=== PATIENT | female | born 1960 | race Two or more races ===

== ENCOUNTER → 2024-09-17 | Outpatient (CLI) | payer BC, SELFPAY ==
[2024-09-17 15:35] LABS: Basophils % (Auto) 1 % (0-2.5); Eosinophils # (Auto) 0.1 Thou/mm3 (0.0-0.5); Eosinophils % (Auto) 2 % (0-10); Hematocrit 40.5 % (36.0-46.0); Hemoglobin 13.5 g/dL (12.0-16.0); Immature Granulocytes % (Auto) 0 % (0-0); Immature Granulocytes Auto 0.01 Thou/mm3 (0.00-0.00); Lymphocytes # (Auto) 1.9 Thou/mm3 (1.0-4.8); Lymphocytes % (Auto) 36 % (10-50); Mean Corpuscular HGB Conc 33.3 g/dl (31.0-37.0); Mean Corpuscular Hemoglobin 33.3 pg (25.0-35.0); Mean Corpuscular Volume 100 fL (80-100); Monocytes # (Auto) 0.6 Thou/mm3 (0.0-0.8); Monocytes % (Auto) 12 % (0-12); Neutrophils # (Auto) 2.6 Thou/mm3 (1.8-7.7); Neutrophils % (Auto) 49 % (37-80); Nucleated Red Blood Cell % 0 /100 WBC (0); RDW Standard Deviation 60.5 fL (36.4-46.3); Red Blood Count 4.05 Miln/mm3 (4.00-5.20); White Blood Count 5.2 Thou/mm3 (3.6-11.0)
[2024-09-17 15:54] LABS: Platelet Count 79 Thou/mm3 (140-440)
[2024-09-17 15:55] LABS: Slide Review Platelets confirmed
[2024-09-17 15:56] LABS: Alanine Aminotransferase 29 U/L (10-49); Albumin, Serum 2.9 gm/dL (3.4-4.8); Albumin/Globulin Ratio 0.8 (1.2-2.2); Alkaline Phosphatase 199 U/L (46-116); Anion Gap 3 (7-16); Aspartate Amino Transferase 51 U/L (0-34); BUN/Creatinine Ratio 16 Ratio (12-20); Bilirubin,Total 1.8 mg/dL (0.3-1.2); Blood Urea Nitrogen 13 mg/dL (9-23); Calcium 8.6 mg/dL (8.3-10.6); Calcium (Corrected) 9.5 mg/dL (8.5-10.1); Carbon Dioxide 28.6 mMol/L (20.0-31.0); Chloride 109 mMol/L (98-107); Creatinine (Component) 0.8 mg/dL (0.6-1.3); Globulin 3.8 gm/dL (2.3-3.5); Glucose 94 mg/dL (74-106); Osmolality,Calculated 281 (275-295); Potassium 4.6 mMol/L (3.4-5.1); Sodium 141 mMol/L (136-145); Total Protein 6.7 gm/dL (5.7-8.2); eGFR > 60 See Note
[2024-09-17 16:13] LABS: CA 15-3 9.9 U/mL (<32.4); Carcinoembryonic Antigen 2.8 ng/mL (0.0-5.0)
== END | disposition home or self-care (01) ==
LOC: SCTO 13:56
PROVIDERS: PCP Physician Assistant; Referring Provider Nurse Practitioner Family; Visit Provider Nurse Practitioner Family
DX: C50.311 Malignant neoplasm of lower-inner quadrant of right female breast (principal)
CPT/HCPCS: 36415; 80053; 82105; 82378; 85025; 86300

== ENCOUNTER → 2024-09-22 | Outpatient (CLI) | payer BC, SELFPAY ==
--- NOTE | 2024-09-22 10:09 | EKG_ITS ---
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
[2024-09-22 10:11] VITALS: BMI 33.7
[2024-09-22 10:58] LABS: Basophils % (Auto) 1 % (0-2.5); Eosinophils # (Auto) 0.1 Thou/mm3 (0.0-0.5); Eosinophils % (Auto) 3 % (0-10); Hematocrit 40.7 % (36.0-46.0); Hemoglobin 13.8 g/dL (12.0-16.0); Immature Granulocytes % (Auto) 0 % (0-0); Immature Granulocytes Auto 0.01 Thou/mm3 (0.00-0.00); Lymphocytes # (Auto) 1.4 Thou/mm3 (1.0-4.8); Lymphocytes % (Auto) 34 % (10-50); Mean Corpuscular HGB Conc 33.9 g/dl (31.0-37.0); Mean Corpuscular Hemoglobin 32.9 pg (25.0-35.0); Mean Corpuscular Volume 97 fL (80-100); Monocytes # (Auto) 0.4 Thou/mm3 (0.0-0.8); Monocytes % (Auto) 11 % (0-12); Neutrophils % (Auto) 51 % (37-80); Nucleated Red Blood Cell % 0 /100 WBC (0)
[2024-09-22 11:13] LABS: Platelet Count 74 Thou/mm3 (140-440)
[2024-09-22 11:16] LABS: Alanine Aminotransferase 26 U/L (10-49); Albumin, Serum 2.9 gm/dL (3.4-4.8); Albumin/Globulin Ratio 0.7 (1.2-2.2); Alkaline Phosphatase 174 U/L (46-116); Anion Gap 4 (7-16); Aspartate Amino Transferase 45 U/L (0-34); BUN/Creatinine Ratio 14 Ratio (12-20); Bilirubin,Total 2.2 mg/dL (0.3-1.2); Blood Urea Nitrogen 10 mg/dL (9-23); Calcium 8.4 mg/dL (8.3-10.6); Calcium (Corrected) 9.3 mg/dL (8.5-10.1); Carbon Dioxide 28.4 mMol/L (20.0-31.0); Chloride 107 mMol/L (98-107); Creatinine (Component) 0.7 mg/dL (0.6-1.3); Estimated Creatinine Clearance 86.8 mL/min (>60); Globulin 3.9 gm/dL (2.3-3.5); Glucose 142 mg/dL (74-106); Osmolality,Calculated 278 (275-295); Potassium 4.1 mMol/L (3.4-5.1); Sodium 139 mMol/L (136-145); Total Protein 6.8 gm/dL (5.7-8.2); eGFR > 60 See Note
[2024-09-22 11:39] LABS: HIV (1&2) Antibody Rapid Non-Reactive
[2024-09-22 12:04] LABS: Hepatitis A Antibody IgM Non Reactive (Non React); Hepatitis B Core Antibody IgM Non Reactive (Non React); Hepatitis B Surface Antigen Non Reactive (Non React); Hepatitis C Antibody Non Reactive (Non React)
[2024-09-22 16:45] LABS: Slide Review Platelets confirmed
== END | disposition home or self-care (01) ==
LOC: SLAB 09-24 07:35
PROVIDERS: PCP Physician Assistant; Referring Provider Student in an Organized Health Care Education/Training Program; Visit Provider Student in an Organized Health Care Education/Training Program
DX: Z01.812 Encounter for preprocedural laboratory examination (principal); N95.0 Postmenopausal bleeding
CPT/HCPCS: 36415; 80053; 80074; 85025; 86703; 86850; 86900; 86901; 93005

== ENCOUNTER 2024-09-24 13:27 | Outpatient (RCR) | payer BC, SELFPAY ==
--- NOTE | 2024-09-27 19:07 | CTCFLWUP_ITS ---
[address] [address] FOLLOW UP NOTE DATE OF VISIT: 09/24/2024 NAME: LUBA ANTON MR#: [id number] : 1960 AGE: 63 DIAGNOSIS: Stage I ER positive, FL positive HER-2/lee negative, grade 1 invasive ductal carcinoma of right breast (11/30/2014). Thrombocytopenia from cirrhosis of the liver and portacaval adenopathy, CT 05/10/2022. Vaginal bleed planned for hysterectomy REASON FOR TODAY?S VISIT: This is office follow-up visit. Patient was seen by her oracle obiee developer and t ransvaginal ultrasound was obtained. Transvaginal ultrasound of the pelvis showed abnormally thicken ed endometrial stripe, 08/13/2024. Pelvic ultrasound recommended 6-month follow-up continue transvagi nal pelvic ultrasound to document stability of thickened endometrial stripe, 08/13/2024. Patient was planned for hysterectomy but procedure was aborted secondary to lower platelet level. Patient is her e to get recommendations for surgery as well as to follow-up on the breast ultrasound. HISTORY OF PRESENT ILLNESS: PREVIOUS NOTE: Luba Anton is a 63-year-old Syriac-speaking [place] panic female with following history. 08/19/2014: Patient had a right breast mammogram which showed suspicious microcalcifications at 6 o'cl ock position in the right breast. 09/15/2014: Patient had stereotactic core biopsy of right breast mass which showed grade 1 0.3 cm inva sive ductal carcinoma. No lymphovascular invasion was identified. Tumor was ER positive, FL positive and HER-2/ lee negative. 11/30/2014: Patient had right breast partial mastectomy and sentinel lymph node biopsy. Surgical path ology specimen did not show any evidence of residual invasive malignancy in the right breast partial mastectomy spec imen. One sentinel lymph node was negative for metastatic disease. 02/14/2015: Patient received adjuvant radiation therapy to the right breast. 05/23/2015 patient was started on adjuvant letrozole. 11/29/2015: Patient had a right breast simple mastectomy which showed focal residual ductal carcinoma in situ without any evidence of invasive malignancy. 08/27/2017: Letrozole was changed to anastrozole due to muscle pains. 09/26/2017: Bone density test?10/07/2018: Patient had mammograms done.Bl-RADS category ll Benign ?ndi ngs Recommend I year follow-up mammogram. 09/16/2019: Doppler ultrasound study of the left lower extremity was negative for DVT. 10/09/2019: Bone scan did not show any evidence of metastatic disease to the bone. 10/07/2019: Unilateral left breast screening mammogram showed BI-RADS Category 2, benign findings. 11/06/2019: X-ray pelvis?Poorly defined radiolucency in the left femoral neck and greater trochanter This measures at least 23 mm in transverse dimension. Poorly defined radiolucency in the right femoral neck, 18 mm 01/30/2020: MRI of right and left hip with contrast is negative for any malignancy. 08/19/2020: Bone density test 05/01/2021: CT scan of the abdomen and pelvis without contrast? 05/10/2022: CT abdomen with and without contrast 07/17/2023: CT 01/31/2024: DEXA 02/19/2024: Mammogram screening 02/19/2024: CEA 2.7, CA 15-3 13.0 03/18/2024: CT abdomen and pelvis with and without contrast 03/25/2024: US left breast 03/25/2024: Diagnostic Mammogram 03/25/2024: CEA is 2.9, CA 15-3 is 13.6 04/08/2024: Ultrasound left breast 04/10/2024: Ultrasound pelvic complete 04/10/2024: Transvaginal ultrasound of the pelvis 05/15/2024: CA125 is 18.0 05/19/2024: CEA is 2.5 05/21/2024: Pelvis MRI with and without contrast 08/13/2024: Transvaginal ultrasound of the pelvis showed abnormally thickened endometrial stripe. 08/13/2024: Pelvic ultrasound recommended 6-month follow-up continue transvaginal pelvic ultrasound to document stability of thickened endometrial stripe MEDICATIONS: Calcium 600 + D(3) [calcium carbonate-vitamin D3] Medications last reconciled 08/19/2024 ALLERGIES: No Known Drug Allergies REVIEW OF SYSTEMS Neurological: No headache, seizures or blurring of vision. Gastrointestinal: No nausea, vomiting, diarrhea or constipation. Cardiovascular: No palpitations or angina pains. Respiratory: No cough, chest pain or shortness of breath. VITAL SIGNS: Date Time PHYSICAL EXAMINATION: Conjunctivae is white Oral cavity: No Lesions. Neck is supple. No adenopathy. Chest is clear to auscultation. No wheezes or rales audible. CVS: Rhythm regular, no murmurs. Abdomen is soft. No hepatosplenomegaly. Extremities: No pedal edema, no cyanosis. LABORATORY DATA: Date 09/17/2024 09/22/2024 Time 2:08 PM 10:33 AM CBC ?WHITE BLOOD COUNT (Thou/mm3) [C] 5.2 [C] 4.0 ??RED BLOOD COUNT (Miln/mm3) [C] 4.05 [C] 4.20 ??HEMOGLOBIN (gm/dl) [C] 13.5 [C] 13.8 ??HEMATOCRIT (%) [C] 40.5 [C] 40.7 ??MCV (MEAN CORPUSCULAR VOL) (fl) [C] 100 [C] 97 ??MCH (MEAN CORPUSCULAR HGB) (pg) [C] 33.3 [C] 32.9 ??MCHC (MEAN CORPSCULR HGB CONC) (gm/dl) [C] 33.3 [C] 33.9 ??RDW (RBC DISTRIBUTION WDTH) SD (fl) [C] 60.5 H [C] 60.0 H ??PLATELET COUNT (Thou/mm3) [C] 79 L [C] 74 L ??NEUTROPHILS %, AUTO (%) [C] 49 [C] 51 ??LYMPH %, AUTO (%) [C] 36 [C] 34 ??MONO %, AUTO (%) [C] 12 [C] 11 ??EOS %, AUTO (%) [C] 2 [C] 3 ??BASO %, AUTO (%) [C] 1 [C] 1 ??NUCLEATED RBC % (/100 WBC) [C] 0 [C] 0 ??NEUTROPHILS, AUTO (Thou/mm3) [C] 2.6 [C] 2.0 ??LYMPH, AUTO (Thou/mm3) [C] 1.9 [C] 1.4 ??MONO, AUTO (Thou/mm3) [C] 0.6 [C] 0.4 ??EOS, AUTO (Thou/mm3) [C] 0.1 [C] 0.1 ??BASO, AUTO (Thou/mm3) [C] 0.0 [C] 0.0 ??NUCLEATED RBC # (Thou/mm3) [C] 0.00 [C] 0.00 ??IMMATURE GRANULOCYTES % AUTO (%) [C] 0 [C] 0 ??IMMATURE GRANULOCYTES, AUTO (Thou/mm3) [C] 0.01 H [C] 0.01 H Chemistry ?GLUCOSE,RANDOM (mg/dL) 94 142 H ??BLOOD UREA NITROGEN (mg/dL) 13 10 ??CREATININE (mg/dL) 0.80 0.70 ??SODIUM (mmol/L) 141 139 ??POTASSIUM (mmol/L) 4.6 4.1 ??CHLORIDE (mmol/L) 109 H 107 ??CO2 (CARBON DIOXIDE) (mmol/L) 28.6 28.4 ??ANION GAP (mmol/L) 3 L 4 L ??OSMOLALITY, CALC 281 278 ??BUN/CREATININE RATIO (Ratio) 16 14 ??CrCl (CandG) (ml/min) 99.20 113.37 ??AST/SGOT (Unit/L) 51 H 45 H ??ALT/SGPT (Unit/L) 29 26 ??ALKALINE PHOSPHATASE (Unit/L) 199 H 174 H ??BILIRUBIN, TOTAL (mg/dL) 1.8 H 2.2 H ??PROTEIN TOTAL (gm/dl) 6.7 6.8 ??ALBUMIN, SERUM (gm/dl) 2.9 L 2.9 L ??GLOBULIN (gm/dl) 3.8 H 3.9 H ??ALBUMIN/GLOBULIN RATIO 0.8 L 0.7 L ??CALCIUM, SERUM (mg/dL) 8.6 8.4 ??CALCIUM SERUM (CORRECTED) (mg/dL) 9.5 9.3 Tumor Markers ?CEA (O*) (ng/ml) 2.8 ?Initials MALIKA SANDHU ??Approved By [facility] ? Other Labs ?CrCl (J) (ml/min) 72.5 82.8 ??SLIDE REVIEW (Thou/mm3) Platelets confirmed Platelets confirmed ??AFP NON- (O*) (ng/ml) 3.20 ? ??HEPATITIS B SURFACE AG ? Non Reactive ??CA 15-3 (Unit/mL) 9.9 ? ??Hepatitis B Core Antibody IgM ? Non Reactive ??Estimated Creatinine Clearance (ml/min) ? 86.8 ??Hepatitis C Antibody ? Non Reactive ??Hepatitis A Antibody IgM ? Non Reactive ??HIV (1 2) Antibody Rapid ? Non-Reactive ??eGFR (See Note) > 60 > 60 ASSESSMENT AND PLAN: #1. Stage I ER positive, FL positive HER-2/lee negative, grade 1 invasive ductal carcinoma of right b reast (11/30/2014). Right breast simple mastectomy, 11/29/2015. Completed anastrozole treatment. left breast ultrasound follow up for 09/2024 is normal . Clinical no evidence of recurrence Regular mammogram #2 thrombocytopenia from underlying liver cirrhosis and endometrial thickening Patient already follows with outside tinning equipment tender for her cirrhosis and portal caval adenopathy Patient's last EGD was normal Last colonoscopy in 2019 was normal Patient need every 6 months MRI of the liver to evaluate for early hcc Patient will continue to follow with her tinning equipment tender at [facility] Patient was planned for hysterectomy Advised--patient can be transfused 10 units of platelets or 1 platelet pheresis during procedure of h ysterectomy Patient is low risk for bleed if her platelets are above 50 but to be on the safer side we can keep t he platelets above 100 Patient should be able to complete hysterectomy with the platelet pheresis #4. Risk for osteoporosis. DEXA, osteopenia, lumbar mineralization increased 4.6%, 01/31/2024. Continue calcium twice daily. #5. Cholelithiasis Epigastric pain resolved, declined surgical intervention Follow-up with the PCP. RTC in 6 months cc: Stu Willett, Referring: Jonathan Willett This document was completed utilizing speech recognition software. Grammatical errors, random word in sertions, pronoun errors, and incomplete sentences are an occasional consequence of this system due t o software limitations, ambient noise, and hardware issues. Any formal questions or concerns about th e content, text or information contained within the body of this dictation should be directly address ed to the provider for clarification. Patient: LUBA ANTON : 1960 MR#: [id number] FOLLOW UP NOTE Page 11 of 11
== END 2024-10-10 23:59 | disposition home or self-care (01) ==
LOC: SCTC 13:27
PROVIDERS: PCP Physician Assistant; Referring Provider Physician Assistant; Visit Provider Internal Medicine Hematology & Oncology
DX: R93.89 Abnormal findings on diagnostic imaging of other specified body structures (principal); Z85.3 Personal history of malignant neoplasm of breast; Z90.11 Acquired absence of right breast and nipple; D69.6 Thrombocytopenia, unspecified; M85.88 Other specified disorders of bone density and structure, other site
CPT/HCPCS: 99213; G0463

== ENCOUNTER → 2024-11-12 | Outpatient (CLI) | payer BC, SELFPAY ==
[2024-11-12 14:17] LABS: Basophils % (Auto) 0 % (0-2.5); Eosinophils # (Auto) 0.1 Thou/mm3 (0.0-0.5); Eosinophils % (Auto) 3 % (0-10); Hematocrit 39.2 % (36.0-46.0); Hemoglobin 13.1 g/dL (12.0-16.0); Immature Granulocytes % (Auto) 0 % (0-0); Immature Granulocytes Auto 0.01 Thou/mm3 (0.00-0.00); Lymphocytes # (Auto) 1.3 Thou/mm3 (1.0-4.8); Lymphocytes % (Auto) 31 % (10-50); Mean Corpuscular HGB Conc 33.4 g/dl (31.0-37.0); Mean Corpuscular Hemoglobin 33.2 pg (25.0-35.0); Mean Corpuscular Volume 99 fL (80-100); Monocytes # (Auto) 0.4 Thou/mm3 (0.0-0.8); Monocytes % (Auto) 10 % (0-12); Neutrophils # (Auto) 2.3 Thou/mm3 (1.8-7.7); Neutrophils % (Auto) 56 % (37-80); Nucleated Red Blood Cell % 0 /100 WBC (0); Platelet Count 83 Thou/mm3 (140-440); RDW Standard Deviation 60.8 fL (36.4-46.3); Red Blood Count 3.95 Miln/mm3 (4.00-5.20)
[2024-11-12 14:23] LABS: INR 1.3 (0.9-1.3); Partial Thromboplastin Time 33.9 Seconds (22.0-36.0); Prothrombin Time 14.1 Seconds (9.0-12.2)
[2024-11-12 14:24] LABS: Alanine Aminotransferase 33 U/L (10-49); Albumin/Globulin Ratio 0.8 (1.2-2.2); Alkaline Phosphatase 203 U/L (46-116); Anion Gap 7 (7-16); Aspartate Amino Transferase 51 U/L (0-34); BUN/Creatinine Ratio 17 Ratio (12-20); Bilirubin,Total 1.6 mg/dL (0.3-1.2); Blood Urea Nitrogen 10 mg/dL (9-23); Calcium 8.4 mg/dL (8.3-10.6); Calcium (Corrected) 9.2 mg/dL (8.5-10.1); Carbon Dioxide 28.5 mMol/L (20.0-31.0); Chloride 108 mMol/L (98-107); Creatinine (Component) 0.6 mg/dL (0.6-1.3); Globulin 3.9 gm/dL (2.3-3.5); Glucose 144 mg/dL (74-106); LDH (Lactate Dehydrogenase) 263 U/L (120-246); Osmolality,Calculated 286 (275-295); Sodium 143 mMol/L (136-145); Total Protein 6.9 gm/dL (5.7-8.2); eGFR > 60 See Note
[2024-11-19 06:25] LABS: Haptoglobin* 10 mg/dL (43-212)
== END | disposition home or self-care (01) ==
LOC: SCTO 12:51
PROVIDERS: PCP Physician Assistant; Referring Provider Internal Medicine Hematology & Oncology; Visit Provider Internal Medicine Hematology & Oncology
DX: C50.311 Malignant neoplasm of lower-inner quadrant of right female breast (principal)
CPT/HCPCS: 36415; 80053; 83010; 83615; 85025; 85610; 85730; 86880

== ENCOUNTER 2024-11-17 13:27 | Outpatient (RCR) | payer BC, SELFPAY | END 2024-12-11 23:59 | disposition home or self-care (01) | LOC: SCTC 13:27 | PROVIDERS: PCP Physician Assistant; Referring Provider Physician Assistant; Visit Provider Nurse Practitioner Family | DX: Z08 Encounter for follow-up examination after completed treatment for malignant neoplasm (principal); Z85.3 Personal history of malignant neoplasm of breast; Z90.11 Acquired absence of right breast and nipple; Z92.29 Personal history of other drug therapy; D69.6 Thrombocytopenia, unspecified; M85.89 Other specified disorders of bone density and structure, multiple sites | CPT/HCPCS: 99212; G0463 ==

== ENCOUNTER → 2025-02-11 | Outpatient (CLI) | payer BC, SELFPAY ==
[2025-02-11 13:14] LABS: Basophils % (Auto) 1 % (0-2.5); Eosinophils # (Auto) 0.1 Thou/mm3 (0.0-0.5); Eosinophils % (Auto) 2 % (0-10); Hematocrit 35.7 % (36.0-46.0); Hemoglobin 12.1 g/dL (12.0-16.0); Immature Granulocytes % (Auto) 0 % (0-0); Immature Granulocytes Auto 0.01 Thou/mm3 (0.00-0.00); Lymphocytes # (Auto) 1.4 Thou/mm3 (1.0-4.8); Lymphocytes % (Auto) 29 % (10-50); Mean Corpuscular HGB Conc 33.9 g/dl (31.0-37.0); Mean Corpuscular Hemoglobin 32.1 pg (25.0-35.0); Mean Corpuscular Volume 95 fL (80-100); Monocytes # (Auto) 0.6 Thou/mm3 (0.0-0.8); Monocytes % (Auto) 12 % (0-12); Neutrophils # (Auto) 2.7 Thou/mm3 (1.8-7.7); Neutrophils % (Auto) 57 % (37-80); Nucleated Red Blood Cell % 0 /100 WBC (0); Platelet Count 87 Thou/mm3 (140-440); RDW Standard Deviation 58.8 fL (36.4-46.3); Red Blood Count 3.77 Miln/mm3 (4.00-5.20); White Blood Count 4.7 Thou/mm3 (3.6-11.0)
[2025-02-11 13:26] LABS: Alanine Aminotransferase 28 U/L (10-49); Albumin, Serum 2.5 gm/dL (3.4-4.8); Albumin/Globulin Ratio 0.6 (1.2-2.2); Alkaline Phosphatase 201 U/L (46-116); Anion Gap 6 (7-16); Aspartate Amino Transferase 47 U/L (0-34); BUN/Creatinine Ratio 20 Ratio (12-20); Bilirubin,Total 1.7 mg/dL (0.3-1.2); Blood Urea Nitrogen 12 mg/dL (9-23); Calcium 7.9 mg/dL (8.3-10.6); Calcium (Corrected) 9.1 mg/dL (8.5-10.1); Carbon Dioxide 26.8 mMol/L (20.0-31.0); Chloride 109 mMol/L (98-107); Creatinine (Component) 0.6 mg/dL (0.6-1.3); Globulin 3.9 gm/dL (2.3-3.5); Glucose 91 mg/dL (74-106); Osmolality,Calculated 282 (275-295); Potassium 4.1 mMol/L (3.4-5.1); Sodium 142 mMol/L (136-145); Total Protein 6.4 gm/dL (5.7-8.2); eGFR > 60 See Note
[2025-02-11 13:44] LABS: CA 15-3 15.6 U/mL (<32.4); Carcinoembryonic Antigen 2.8 ng/mL (0.0-5.0)
== END | disposition home or self-care (01) ==
LOC: SCTO 12:46
PROVIDERS: PCP Physician Assistant; Referring Provider Nurse Practitioner Family; Visit Provider Nurse Practitioner Family
DX: C50.311 Malignant neoplasm of lower-inner quadrant of right female breast (principal)
CPT/HCPCS: 36415; 80053; 82105; 82378; 85025; 86300

== ENCOUNTER 2025-02-15 15:39 | Outpatient (RCR) | payer BC, SELFPAY | END 2025-03-10 23:59 | disposition home or self-care (01) | LOC: SCTC 15:39 | PROVIDERS: PCP Physician Assistant; Referring Provider Physician Assistant; Visit Provider Nurse Practitioner Family | DX: Z08 Encounter for follow-up examination after completed treatment for malignant neoplasm (principal); Z85.3 Personal history of malignant neoplasm of breast; Z90.11 Acquired absence of right breast and nipple; M85.88 Other specified disorders of bone density and structure, other site; K74.60 Unspecified cirrhosis of liver; D69.6 Thrombocytopenia, unspecified; R93.89 Abnormal findings on diagnostic imaging of other specified body structures | CPT/HCPCS: 99212; G0463 ==

== ENCOUNTER → 2025-03-17 | Outpatient (CLI) | payer BC, SELFPAY ==
--- NOTE | 2025-03-17 13:45 | XR_ITS ---
Examination: Screening digital mammography, unilateral left Computer aided detection 3-D breast Tomosynthesis, unilateral Date and time of exam: March 17, 2025 1425 hours Compared to mammograms dating to October 10, 2020 Indication: Screening, personal history right breast cancer Technique: Nonmagnified MLO, CC views of the left breast to been obtained, reconstructed from 3-D Tomosynthesis images. R2 computer aided detection program utilized for evaluation of suspicious masses and/or abnormal calcifications. 3-D Tomosynthesis images obtained. Findings: Scattered areas of fibroglandular density Focal asymmetry stable retroareolar region left breast No interval suspicious masses Impression: BI-RADS category II Benign findings Recommend 1 year follow-up mammogram.
[2025-03-17 15:24] LABS: Basophils % (Auto) 1 % (0-2.5); Eosinophils # (Auto) 0.3 Thou/mm3 (0.0-0.5); Eosinophils % (Auto) 6 % (0-10); Hematocrit 36.9 % (36.0-46.0); Hemoglobin 12.4 g/dL (12.0-16.0); Immature Granulocytes % (Auto) 0 % (0-0); Immature Granulocytes Auto 0.01 Thou/mm3 (0.00-0.00); Lymphocytes # (Auto) 1.7 Thou/mm3 (1.0-4.8); Lymphocytes % (Auto) 35 % (10-50); Mean Corpuscular HGB Conc 33.6 g/dl (31.0-37.0); Mean Corpuscular Hemoglobin 31.7 pg (25.0-35.0); Mean Corpuscular Volume 94 fL (80-100); Monocytes # (Auto) 0.6 Thou/mm3 (0.0-0.8); Monocytes % (Auto) 13 % (0-12); Neutrophils # (Auto) 2.2 Thou/mm3 (1.8-7.7); Neutrophils % (Auto) 46 % (37-80); Nucleated Red Blood Cell % 0 /100 WBC (0); Platelet Count 98 Thou/mm3 (140-440); RDW Standard Deviation 55.3 fL (36.4-46.3); Red Blood Count 3.91 Miln/mm3 (4.00-5.20); White Blood Count 4.7 Thou/mm3 (3.6-11.0)
[2025-03-17 15:32] LABS: Alanine Aminotransferase 24 U/L (10-49); Albumin, Serum 2.6 gm/dL (3.4-4.8); Albumin/Globulin Ratio 0.6 (1.2-2.2); Alkaline Phosphatase 237 U/L (46-116); Anion Gap 5 (7-16); Aspartate Amino Transferase 43 U/L (0-34); BUN/Creatinine Ratio 16 Ratio (12-20); Bilirubin,Total 1.6 mg/dL (0.3-1.2); Blood Urea Nitrogen 11 mg/dL (9-23); Calcium 7.9 mg/dL (8.3-10.6); Carbon Dioxide 27.1 mMol/L (20.0-31.0); Chloride 111 mMol/L (98-107); Creatinine (Component) 0.7 mg/dL (0.6-1.3); Globulin 4.1 gm/dL (2.3-3.5); Glucose 109 mg/dL (74-106); Osmolality,Calculated 285 (275-295); Potassium 4.4 mMol/L (3.4-5.1); Sodium 143 mMol/L (136-145); Total Protein 6.7 gm/dL (5.7-8.2); eGFR > 60 See Note
[2025-03-17 16:28] LABS: Hepatitis A Antibody IgM Non Reactive (Non React); Hepatitis B Core Antibody IgM Non Reactive (Non React); Hepatitis B Surface Antigen Non Reactive (Non React); Hepatitis C Antibody Non Reactive (Non React)
== END | disposition home or self-care (01) ==
LOC: CDIM 14:23 → COPL 14:30 → SCTO 14:31
PROVIDERS: PCP Nurse Practitioner Family; Referring Provider Nurse Practitioner Family; Visit Provider Radiology Diagnostic Radiology
DX: C50.311 Malignant neoplasm of lower-inner quadrant of right female breast (principal); R92.8 Other abnormal and inconclusive findings on diagnostic imaging of breast; R92.322 Mammographic fibroglandular density, left breast
CPT/HCPCS: 36415; 77063; 77067; 80053; 80074; 85025

== ENCOUNTER → 2025-03-27 | Outpatient (CLI) | payer BC, SELFPAY ==
--- NOTE | 2025-03-27 10:00 | XR_ITS ---
Examination: MRI abdomen with intravenous contrast. MRI abdomen without intravenous contrast. Date and time of exam: March 27, 2011 2025, 0949 hrs. Indications: Diagnosis malignant neoplasm lower inner quadrant right female breast, elevated LFTs on laboratory examination one week ago Technique: Multiple axial, sagittal and coronal sections of the abdomen obtained. Transverse images, TR 6020, TE 107. T1 weighted transverse images, TR 582, TE 9.5. T2-weighted sagittal images, TR 4000, TE 105. T2-weighted sagittal images, TR 4000, TE 5. Coronal images, TR 4210, TE 107. Axial and coronal images are obtained post 19 cc intravenous injection, gadolinium. Findings: Liver is irregular in contour, no focal liver lesions There is edema around the gallbladder with possible gallstones Common hepatic duct common bile duct not enlarged Trace free fluid in the abdomen No splenomegaly Aorta normal size No hydronephrosis Impression: Suspect primary hepatocellular disease, no focal liver lesions Recommend hepatobiliary sonography follow-up to exclude early cholecystitis
== END | disposition home or self-care (01) ==
LOC: SMRI 09:08
PROVIDERS: PCP Physician Assistant; Referring Provider Nurse Practitioner Family; Visit Provider Nurse Practitioner Family
DX: C50.311 Malignant neoplasm of lower-inner quadrant of right female breast (principal)
CPT/HCPCS: 74183; A9579

== ENCOUNTER 2025-03-31 15:13 | Outpatient (RCR) | payer BC, SELFPAY | END 2025-04-10 23:59 | disposition home or self-care (01) | LOC: SCTC 15:13 | PROVIDERS: PCP Physician Assistant; Referring Provider Nurse Practitioner Family; Visit Provider Nurse Practitioner Family | DX: Z08 Encounter for follow-up examination after completed treatment for malignant neoplasm (principal); Z85.3 Personal history of malignant neoplasm of breast; Z90.11 Acquired absence of right breast and nipple; K74.60 Unspecified cirrhosis of liver; K76.0 Fatty (change of) liver, not elsewhere classified; M85.89 Other specified disorders of bone density and structure, multiple sites | CPT/HCPCS: 99212; G0463 ==

== ENCOUNTER → 2025-04-27 | Outpatient (CLI) | payer BC, SELFPAY ==
[2025-04-27 12:23] LABS: Basophils % (Auto) 1 % (0-2.5); Eosinophils # (Auto) 0.1 Thou/mm3 (0.0-0.5); Eosinophils % (Auto) 4 % (0-10); Hematocrit 36.3 % (36.0-46.0); Hemoglobin 12.2 g/dL (12.0-16.0); Immature Granulocytes % (Auto) 0 % (0-0); Lymphocytes # (Auto) 1.4 Thou/mm3 (1.0-4.8); Lymphocytes % (Auto) 37 % (10-50); Mean Corpuscular HGB Conc 33.6 g/dl (31.0-37.0); Mean Corpuscular Hemoglobin 31.1 pg (25.0-35.0); Mean Corpuscular Volume 93 fL (80-100); Monocytes # (Auto) 0.5 Thou/mm3 (0.0-0.8); Monocytes % (Auto) 14 % (0-12); Neutrophils # (Auto) 1.7 Thou/mm3 (1.8-7.7); Neutrophils % (Auto) 45 % (37-80); Nucleated Red Blood Cell % 0 /100 WBC (0); Platelet Count 86 Thou/mm3 (140-440); Red Blood Count 3.92 Miln/mm3 (4.00-5.20); White Blood Count 3.8 Thou/mm3 (3.6-11.0)
[2025-04-27 12:39] LABS: Alanine Aminotransferase 26 U/L (10-49); Albumin, Serum 2.6 gm/dL (3.4-4.8); Albumin/Globulin Ratio 0.8 (1.2-2.2); Alkaline Phosphatase 140 U/L (46-116); Anion Gap 7 (7-16); Aspartate Amino Transferase 44 U/L (0-34); BUN/Creatinine Ratio 13 Ratio (12-20); Bilirubin,Total 1.7 mg/dL (0.3-1.2); Blood Urea Nitrogen 9 mg/dL (9-23); Calcium 8.3 mg/dL (8.3-10.6); Calcium (Corrected) 9.4 mg/dL (8.5-10.1); Carbon Dioxide 27.7 mMol/L (20.0-31.0); Chloride 107 mMol/L (98-107); Creatinine (Component) 0.7 mg/dL (0.6-1.3); Globulin 3.3 gm/dL (2.3-3.5); Glucose 127 mg/dL (74-106); Osmolality,Calculated 283 (275-295); Potassium 4.3 mMol/L (3.4-5.1); Sodium 142 mMol/L (136-145); Total Protein 5.9 gm/dL (5.7-8.2); eGFR > 60 See Note
== END | disposition home or self-care (01) ==
LOC: SCTO 10:31
PROVIDERS: PCP Family Medicine; Referring Provider Student in an Organized Health Care Education/Training Program; Visit Provider Nurse Practitioner Family
DX: C50.311 Malignant neoplasm of lower-inner quadrant of right female breast (principal)
CPT/HCPCS: 36415; 80053; 82105; 85025

== ENCOUNTER → 2025-04-30 | Outpatient (CLI) | payer BC, SELFPAY ==
--- NOTE | 2025-04-30 11:30 | XR_ITS ---
Examination: Abdomen sonogram, Limited Date and time of exam: April 30, 2025 11:09 AM INDICATIONS: Diagnosis malignant neoplasm right breast, elevated liver function tests on laboratory examination this week Technique: Real-time brown scale transabdominal sonographic images of the upper abdomen obtained. Findings: Normal gallbladder Normal common bile duct 0.3 cm Pancreas obscured by bowel gas Liver 11.1 cm lobular contour fatty infiltration no focal liver lesions Normal hepatopedal portal venous flow Patent IVC IMPRESSION: Normal gallbladder Fatty liver, suspect primary hepatocellular disease, no focal liver lesions No intra or extrahepatic biliary tract dilatation
== END | disposition home or self-care (01) ==
LOC: CDIM 10:54
PROVIDERS: PCP Physician Assistant; Referring Provider Nurse Practitioner Family; Visit Provider Nurse Practitioner Family
DX: K76.0 Fatty (change of) liver, not elsewhere classified (principal); C50.311 Malignant neoplasm of lower-inner quadrant of right female breast
CPT/HCPCS: 76705

== ENCOUNTER 2025-06-23 15:03 | Outpatient (RCR) | payer BC, SELFPAY | END 2025-07-11 23:59 | disposition home or self-care (01) | LOC: SCTC 15:03 | PROVIDERS: PCP Physician Assistant; Referring Provider Physician Assistant; Visit Provider Internal Medicine Hematology & Oncology | DX: Z08 Encounter for follow-up examination after completed treatment for malignant neoplasm (principal); Z85.3 Personal history of malignant neoplasm of breast; Z90.11 Acquired absence of right breast and nipple; K74.60 Unspecified cirrhosis of liver; K76.0 Fatty (change of) liver, not elsewhere classified; M85.88 Other specified disorders of bone density and structure, other site; R73.9 Hyperglycemia, unspecified | CPT/HCPCS: 99212; G0463 ==

== ENCOUNTER → 2025-08-13 | Outpatient (CLI) | payer BC, SELFPAY ==
[2025-08-13 11:34] LABS: Basophils # (Auto) 0.0 Thou/mm3 (0.0-0.2); Basophils % (Auto) 1 % (0-2.5); Eosinophils # (Auto) 0.2 Thou/mm3 (0.0-0.5); Eosinophils % (Auto) 4 % (0-10); Hematocrit 38.2 % (36.0-46.0); Hemoglobin 12.8 g/dL (12.0-16.0); Immature Granulocytes Auto 0.01 Thou/mm3 (0.00-0.00); Lymphocytes # (Auto) 1.5 Thou/mm3 (1.0-4.8); Lymphocytes % (Auto) 35 % (10-50); Mean Corpuscular HGB Conc 33.5 g/dl (31.0-37.0); Mean Corpuscular Hemoglobin 32.2 pg (25.0-35.0); Mean Corpuscular Volume 96 fL (80-100); Monocytes # (Auto) 0.6 Thou/mm3 (0.0-0.8); Monocytes % (Auto) 15 % (0-12); Neutrophils # (Auto) 2.1 Thou/mm3 (1.8-7.7); Neutrophils % (Auto) 46 % (37-80); Nucleated Red Blood Cell # 0.00 Thou/mm3 (0.00-0.00); Nucleated Red Blood Cell % 0 /100 WBC (0); RDW Standard Deviation 64.1 fL (36.4-46.3); Red Blood Count 3.98 Miln/mm3 (4.00-5.20); White Blood Count 4.4 Thou/mm3 (3.6-11.0)
[2025-08-13 11:46] LABS: Platelet Count 77 Thou/mm3 (140-440)
[2025-08-13 11:52] LABS: Alanine Aminotransferase 23 U/L (10-49); Albumin, Serum 2.6 gm/dL (3.4-4.8); Albumin/Globulin Ratio 0.8 (1.2-2.2); Alkaline Phosphatase 178 U/L (46-116); Anion Gap 6 (7-16); Aspartate Amino Transferase 44 U/L (0-34); BUN/Creatinine Ratio 14 Ratio (12-20); Bilirubin,Total 1.8 mg/dL (0.3-1.2); Blood Urea Nitrogen 11 mg/dL (9-23); Calcium 8.1 mg/dL (8.3-10.6); Calcium (Corrected) 9.2 mg/dL (8.5-10.1); Carbon Dioxide 28.8 mMol/L (20.0-31.0); Chloride 109 mMol/L (98-107); Creatinine (Component) 0.8 mg/dL (0.6-1.3); Globulin 3.3 gm/dL (2.3-3.5); Glucose 110 mg/dL (74-106); Osmolality,Calculated 287 (275-295); Potassium 4.4 mMol/L (3.4-5.1); Sodium 144 mMol/L (136-145); Total Protein 5.9 gm/dL (5.7-8.2); eGFR > 60 See Note
[2025-08-13 16:00] LABS: Slide Review Platelets confirmed
== END | disposition home or self-care (01) ==
LOC: SCTO 10:34
PROVIDERS: PCP Physician Assistant; Referring Provider Nurse Practitioner Family; Visit Provider Nurse Practitioner Family
DX: C50.311 Malignant neoplasm of lower-inner quadrant of right female breast (principal)
CPT/HCPCS: 36415; 80053; 85025

== ENCOUNTER 2025-08-23 10:24 | Outpatient (RCR) | payer BC, SELFPAY | END 2025-09-10 23:59 | disposition home or self-care (01) | LOC: SCTC 10:24 | PROVIDERS: PCP Physician Assistant; Referring Provider Physician Assistant; Visit Provider Nurse Practitioner Family | DX: Z08 Encounter for follow-up examination after completed treatment for malignant neoplasm (principal); Z85.3 Personal history of malignant neoplasm of breast; Z90.11 Acquired absence of right breast and nipple; K74.60 Unspecified cirrhosis of liver; D69.6 Thrombocytopenia, unspecified; K76.0 Fatty (change of) liver, not elsewhere classified; Z78.0 Asymptomatic menopausal state; M85.88 Other specified disorders of bone density and structure, other site | CPT/HCPCS: 99212; G0463 ==

== ENCOUNTER → 2025-09-14 | Outpatient (CLI) | payer BC, SELFPAY ==
--- NOTE | 2025-09-14 11:56 | XR_ITS ---
Examination: Abdomen sonogram, complete Date and time of exam: September 14, 2025, 1209 hours INDICATIONS: Diagnosis cirrhosis. Technique: Multiple real-time grayscale transabdominal sonographic images of the abdomen have been obtained. Findings: Gallbladder sludge Gallbladder wall is thickened 0.6 cm with edema Common bile duct 0.4 cm Pancreatic head 3.1 cm Distal aorta visualized 1.3 cm Liver 10.1 cm lobular contour no focal liver lesions Normal hepatopetal portal venous flow Patent IVC Right kidney 10.1 cm renal cortex 1.5 cm Left kidney 10.7 cm renal cortex 1.5 cm Moderate renal scarring Spleen 11.7 cm IMPRESSION: Gallbladder sludge Gallbladder wall is thickened 0.6 cm with edema suspicious for cholecystitis, consider HIDA scan or MRCP follow-up Cirrhosis no focal liver lesions
[2025-09-14 13:58] LABS: Basophils # (Auto) 0.0 Thou/mm3 (0.0-0.2); Basophils % (Auto) 0 % (0-2.5); Eosinophils # (Auto) 0.2 Thou/mm3 (0.0-0.5); Eosinophils % (Auto) 4 % (0-10); Hematocrit 40.5 % (36.0-46.0); Hemoglobin 13.5 g/dL (12.0-16.0); Immature Granulocytes Auto 0.02 Thou/mm3 (0.00-0.00); Lymphocytes # (Auto) 1.6 Thou/mm3 (1.0-4.8); Lymphocytes % (Auto) 30 % (10-50); Mean Corpuscular HGB Conc 33.3 g/dl (31.0-37.0); Mean Corpuscular Hemoglobin 32.0 pg (25.0-35.0); Mean Corpuscular Volume 96 fL (80-100); Monocytes # (Auto) 0.8 Thou/mm3 (0.0-0.8); Monocytes % (Auto) 14 % (0-12); Neutrophils # (Auto) 2.8 Thou/mm3 (1.8-7.7); Neutrophils % (Auto) 51 % (37-80); Nucleated Red Blood Cell # 0.00 Thou/mm3 (0.00-0.00); Nucleated Red Blood Cell % 0 /100 WBC (0); RDW Standard Deviation 61.3 fL (36.4-46.3); Red Blood Count 4.22 Miln/mm3 (4.00-5.20); White Blood Count 5.4 Thou/mm3 (3.6-11.0)
[2025-09-14 14:13] LABS: Alanine Aminotransferase 36 U/L (10-49); Albumin, Serum 3.0 gm/dL (3.4-4.8); Albumin/Globulin Ratio 0.9 (1.2-2.2); Alkaline Phosphatase 140 U/L (46-116); Anion Gap 7 (7-16); Aspartate Amino Transferase 44 U/L (0-34); BUN/Creatinine Ratio 14 Ratio (12-20); Bilirubin,Direct 0.8 mg/dL (0.0-0.3); Bilirubin,Total 1.7 mg/dL (0.3-1.2); Blood Urea Nitrogen 11 mg/dL (9-23); Calcium 8.5 mg/dL (8.3-10.6); Calcium (Corrected) 9.3 mg/dL (8.5-10.1); Carbon Dioxide 27.0 mMol/L (20.0-31.0); Chloride 111 mMol/L (98-107); Creatinine (Component) 0.8 mg/dL (0.6-1.3); Globulin 3.2 gm/dL (2.3-3.5); Glucose 106 mg/dL (74-106); Osmolality,Calculated 288 (275-295); Platelet Count 72 Thou/mm3 (140-440); Potassium 4.8 mMol/L (3.4-5.1); Sodium 145 mMol/L (136-145); Total Protein 6.2 gm/dL (5.7-8.2); eGFR > 60 See Note
[2025-09-14 16:00] LABS: Slide Review Platelets confirmed
== END | disposition home or self-care (01) ==
LOC: SDIM 11:18
PROVIDERS: Referring Provider Specialist; Visit Provider Specialist
DX: K82.8 Other specified diseases of gallbladder (principal); K74.60 Unspecified cirrhosis of liver
CPT/HCPCS: 36415; 76700; 80053; 82248; 85025

== ENCOUNTER → 2025-10-11 | Outpatient (CLI) | payer BC, SELFPAY ==
[2025-10-11 12:14] LABS: Basophils # (Auto) 0.0 Thou/mm3 (0.0-0.2); Basophils % (Auto) 1 % (0-2.5); Eosinophils # (Auto) 0.1 Thou/mm3 (0.0-0.5); Eosinophils % (Auto) 3 % (0-10); Hematocrit 38.3 % (36.0-46.0); Hemoglobin 13.0 g/dL (12.0-16.0); Immature Granulocytes Auto 0.02 Thou/mm3 (0.00-0.00); Immature Reticulocyte Fraction 25.0 % (3.0-15.9); Lymphocytes # (Auto) 1.7 Thou/mm3 (1.0-4.8); Lymphocytes % (Auto) 42 % (10-50); Mean Corpuscular HGB Conc 33.9 g/dl (31.0-37.0); Mean Corpuscular Hemoglobin 32.3 pg (25.0-35.0); Mean Corpuscular Volume 95 fL (80-100); Monocytes # (Auto) 0.6 Thou/mm3 (0.0-0.8); Monocytes % (Auto) 14 % (0-12); Neutrophils # (Auto) 1.6 Thou/mm3 (1.8-7.7); Neutrophils % (Auto) 40 % (37-80); Nucleated Red Blood Cell # 0.00 Thou/mm3 (0.00-0.00); Nucleated Red Blood Cell % 0 /100 WBC (0); Platelet Count 82 Thou/mm3 (140-440); RDW Standard Deviation 57.6 fL (36.4-46.3); Red Blood Count 4.03 Miln/mm3 (4.00-5.20); Reticulocyte % (Auto) 2.7 % (0.5-1.5); Reticulocyte Absolute Auto 109.2 Biln/L (25.0-75.0); Reticulocyte Hgb Content 38.1 pg (28.0-35.0); White Blood Count 4.0 Thou/mm3 (3.6-11.0)
[2025-10-11 12:27] LABS: Alanine Aminotransferase 28 U/L (10-49); Albumin, Serum 2.7 gm/dL (3.4-4.8); Albumin/Globulin Ratio 0.8 (1.2-2.2); Alkaline Phosphatase 144 U/L (46-116); Anion Gap 9 (7-16); Aspartate Amino Transferase 50 U/L (0-34); BUN/Creatinine Ratio 18 Ratio (12-20); Bilirubin,Total 1.9 mg/dL (0.3-1.2); Blood Urea Nitrogen 11 mg/dL (9-23); Calcium 8.2 mg/dL (8.3-10.6); Calcium (Corrected) 9.2 mg/dL (8.5-10.1); Carbon Dioxide 28.3 mMol/L (20.0-31.0); Chloride 109 mMol/L (98-107); Creatinine (Component) 0.6 mg/dL (0.6-1.3); Globulin 3.4 gm/dL (2.3-3.5); Glucose 86 mg/dL (74-106); Osmolality,Calculated 288 (275-295); Potassium 4.3 mMol/L (3.4-5.1); Sodium 146 mMol/L (136-145); Total Protein 6.1 gm/dL (5.7-8.2); eGFR > 60 See Note
[2025-10-11 12:36] LABS: Ferritin 39 ng/mL (7.3-270.7); Iron 63 mcg/dL (50-170); Percent Iron Saturation 20 % (20-55); Total Iron Binding Capacity 303 mcg/dL (250-425); Unsaturated Iron Binding 240 (225-295)
[2025-10-11 12:47] LABS: CA 15-3 16.4 U/mL (<32.4); Carcinoembryonic Antigen 3.7 ng/mL (0.0-5.0); Folate 12.18 ng/mL (>5.38); Vitamin B12 769 pg/mL (211-911)
== END | disposition home or self-care (01) ==
LOC: SCTO 11:01
PROVIDERS: PCP Physician Assistant; Referring Provider Nurse Practitioner Family; Visit Provider Nurse Practitioner Family
DX: C50.311 Malignant neoplasm of lower-inner quadrant of right female breast (principal)
CPT/HCPCS: 36415; 80053; 82378; 82607; 82728; 82746; 83540; 83550; 85025; 85046; 86300

== ENCOUNTER 2025-10-19 10:18 | Outpatient (RCR) | payer BC, SELFPAY | END 2025-11-10 23:59 | disposition home or self-care (01) | LOC: SCTC 10:18 | PROVIDERS: PCP Physician Assistant; Referring Provider Obstetrics & Gynecology; Visit Provider Nurse Practitioner Family | DX: Z08 Encounter for follow-up examination after completed treatment for malignant neoplasm (principal); Z85.3 Personal history of malignant neoplasm of breast; Z90.11 Acquired absence of right breast and nipple; K74.60 Unspecified cirrhosis of liver; D69.59 Other secondary thrombocytopenia; K76.0 Fatty (change of) liver, not elsewhere classified; M85.88 Other specified disorders of bone density and structure, other site | CPT/HCPCS: 99212; G0463 ==